=== PATIENT | male | born 1955 | race Caucasian/White ===

== ENCOUNTER 2018-10-26 06:54 | Day surgery (SDC) | payer OTHER ==
[2018-10-26] MEDS: CEFAZOLIN 2 GM/50 ML (PMX) 50 ML IVPB (07:00)
[2018-10-26] MEDS ORDERED: SEVOFLURANE 15 MIN (07:00)
[2018-10-26] MEDS ORDERED: CEFAZOLIN 1 GM INJ (07:00)
[2018-10-26] MEDS: SOD CHLORIDE 0.9% 1,000 ML IV (07:00)
[2018-10-26] MEDS ORDERED: ETOMIDATE 20 MG INJ (09:05)
[2018-10-26] MEDS ORDERED: PROPOFOL 20 ML (09:05)
[2018-10-26] MEDS ORDERED: LIDOCAINE 1% (MDV) 20 ML INJ (09:05)
[2018-10-26] MEDS ORDERED: ROPIVACAINE 0.5 % 30 ML VIAL (09:07)
[2018-10-26] MEDS ORDERED: FENTAnyl 50 MCG/ML VIAL (09:21)
[2018-10-26] MEDS ORDERED: ONDANSETRON 4 MG INJ ×2 (09:21→10:14)
[2018-10-26] MEDS: POLYMYXIN/BACITRACIN 1L IRRIG (09:40)
[2018-10-26] MEDS ORDERED: HYDROmorphONE 1 MG/5 ML IV SYRINGE IV (10:14)
[2018-10-26] MEDS: HYDROmorphONE 1 MG/5 ML IV SYRINGE IV ×3 (10:28→11:09)
[2018-10-26] MEDS: HYDROCODONE/APAP (5/325) TAB PO (10:38)
[2018-10-26] MEDS: hydrALAzine 20 MG INJ IV (11:16)
== END 2018-10-26 12:38 | disposition home or self-care (01) ==
LOC: SDS 06:54
DX: K40.30 Unilateral inguinal hernia, with obstruction, without gangrene, not specified as recurrent (principal); I10 Essential (primary) hypertension
CPT/HCPCS: 49507